=== PATIENT | female | born 1935 | race Two or more races ===

== ENCOUNTER 2020-03-24 10:45 | Inpatient (IN) | payer OTHER ==
[~2020-03-24] VITALS: Ht 154.9 cm; Wt 59.0 kg
[2020-03-24] MEDS ORDERED: TOPROL XL25 M1 PO (16:10)
[2020-03-24] MEDS ORDERED: TAPAZOLE5 M1 PO (16:11)
[2020-04-04] MEDS ORDERED: INTESTINEX680 M1 PO (08:13)
[2020-04-04] MEDS ORDERED: HYOSCYAMINE0.125 M1 SL (08:13)
[2020-04-04] MEDS ORDERED: TRAMADOL HCL50 MG PO (08:13)
== END 2020-04-04 10:51 | disposition home or self-care (01) | DRG 331 ==
LOC: ADM 10:45 → EDSTATUS 10:45 → SURH 03-31 07:00 → SURG 03-31 08:29 → O/R 03-31 08:29 → SURH 03-31 10:45 → SURG 03-31 15:23
PROVIDERS: ADMIT Surgery; ATTEND Surgery
PROC: 0DBK4ZZ Excision of Ascending Colon, Percutaneous Endoscopic Approach (ICD-10-PCS; 2020-03-31)
PROC: 0D1 Gastrointestinal System, Bypass (ICD-10-PCS; 2020-03-31)
PROC: 0DBL4ZZ Excision of Transverse Colon, Percutaneous Endoscopic Approach (ICD-10-PCS; principal; 2020-03-31 07:00)
DX: C18.4 Malignant neoplasm of transverse colon (principal); I10 Essential (primary) hypertension; E03.9 Hypothyroidism, unspecified; K63.5 Polyp of colon

== ENCOUNTER 2020-07-22 05:28 | Day surgery (SDC) | payer OTHER ==
[~2020-07-22 05:28] MED LIST: HYOSCYAMINE0.125 M1 SL; INTESTINEX680 M1 PO; TAPAZOLE5 M1 PO; TOPROL XL25 M1 PO; TRAMADOL HCL50 MG PO
== END 2020-07-22 09:45 | disposition home or self-care (01) ==
LOC: AMB-ENDOS 05:28 → CIR.AMB 05:28 → AMB-ENDOS 09:45 → CIR.AMB 12:15
PROVIDERS: ATTEND Surgery
DX: K62.89 Other specified diseases of anus and rectum (principal); Z20.828 Contact with and (suspected) exposure to other viral communicable diseases; K64.8 Other hemorrhoids